=== PATIENT | female | born 1960 | race Caucasian/White ===

== ENCOUNTER 2017-09-11 10:46 | Emergency (ER) | payer MEDICARE, MEDICAID, SELFPAY ==
[2017-09-11 10:47] VITALS: BP 154/101; PULSE 95; RESP 18; TEMP 36.8; O2SAT 99; BMI 33.1
--- NOTE | 2017-09-11 10:54 | XR_ITS ---
XR chest 2V HISTORY: ITS.REASON: cough ORDERING PHYSICIAN: Jules Cruz MD PATIENT AGE: 57 years COMPARISON: [id number] FINDINGS: The cardiomediastinal silhouette and pulmonary vascularity are within normal limits. The lungs are clear without infiltrates, suspicious nodules, or pleural effusions. No acute bony abnormalities. IMPRESSION: Negative chest, no acute finding
[2017-09-11 11:23] LABS: Basophils % 0.4 % (0.1-2.0); Eosinophils % 0.2 % (0.1-12.0); Hematocrit 45.2 % (37.0-47.0); Hemoglobin 14.5 g/dL (12.2-16.2); Lymphocytes # 2.7 K/mm3 (0.7-4.5); Lymphocytes % 24.4 K/mm3 (10-50); Mean Corpuscular HGB Conc 32.1 g/dL (31.8-35.4); Mean Corpuscular Hemoglobin 25.8 pg (27.0-31.2); Mean Corpuscular Volume 80.4 fl (81-99); Mean Platelet Volume 7.9 fl (7.4-10.4); Monocytes # 0.4 K/mm3 (0.1-1.0); Monocytes % 3.3 % (1.7-9.3); Neutrophils # 7.8 K/mm3 (1.8-7.8); Neutrophils % 71.7 % (37.0-80.0); Platelet Count 337 K/mm3 (142-424); Red Blood Count 5.62 M/mm3 (4.20-5.40); Red Cell Distribution Width 15.9 % (11.5-17.5); White Blood Count 10.9 K/mm3 (4.8-10.8)
[2017-09-11 11:25] LABS: Alanine Aminotransferase 23 U/L (12-78); Albumin Level 3.2 gm/dL (3.4-5.0); Albumin/Globulin Ratio 0.7 (1.1-1.8); Alkaline Phosphatase 180 U/L (46-116); Anion Gap 13.1 mEq/L (5-15); Aspartate Amino Transferase 15 U/L (15-37); Bilirubin,Total 0.4 mg/dL (0.2-1.0); Blood Urea Nitrogen 11 mg/dL (7-18); Carbon Dioxide 28 mmol/L (21.0-32.0); Chloride 99 mmol/L (98-107); Creatinine Clearance Estimated 103 mL/min (0-300); Creatinine,Serum 0.85 mg/dL (0.55-1.02); Estimated Glomerular Filt Rate > 60 ml/min (>60); GFR (African American) > 60 ML/MIN (>60); Globulin 4.7 gm/dl (1.3-3.2); Glucose 131 mg/dL (74-106); Potassium 3.1 mmoL/L (3.5-5.1); Sodium 137 mmol/L (136-145); Strep Scrn Group A (Rapid) Negative (Negative); Total Protein,Serum 7.9 gm/dL (6.4-8.2); Troponin I < 0.02 ng/ml (0.00-0.06)
[2017-09-11 11:46] VITALS: BP 139/75; PULSE 72; RESP 18
--- NOTE | 2017-09-11 13:01 | [facility].EDFEV ---
ED Disposition Clinical Impression: Gastroenteritis, Viral gastroenteritis Disposition: Home, Self-Care Condition on Discharge: Fair Additional Instructions: Stay on clear liquids for the next 24 to 48hours and followup with PCP as needed. Prescriptions: Ondansetron HCl [Zofran 4mg Tab] 4 mg PO QID 10 Days #40 tab Referrals: Provider,Referral, [Primary Care Provider] - Time of Disposition: 15:45 - Critical Care Critical Care Time: No Attestation: On 09/11/17, the high probability of a clinically significant, sudden or life threatening deterioration of the following system(s) required my full and direct attention, intervention and personal management. The time I documented below is in addition to time spent performing reported procedures but includes the following listed in this critical care notation. Medical Decision Making - Medical Records Medical records reviewed: Yes: I reviewed the patient's medical records. Vital Signs: 09/11/17 10:47 09/11/17 11:46 09/11/17 13:03 Temperature 98.3 F 98.7 F Temperature Source Oral Oral Pulse Rate [Right Radial] 95 H 72 95 H Respiratory Rate 18 18 Blood Pressure [Right Arm] 154/101 139/75 145/76 Blood Pressure Mean [Right Arm] 118 96 99 Blood Pressure Source [Right Arm] Automatic Cuff Automatic Cuff Automatic Cuff Blood Pressure Position [Right Arm] Right Lateral Supine Supine 02 Sat by Pulse Oximetry 99 99 Oxygen Delivery Method Room Air Room Air - Lab Data Lab Results 09/11/17 10:56: WBC 10.9 H, RBC 5.62 H, Hgb 14.5, Hct 45.2, MCV 80.4 L, MCH 25.8 L, MCHC 32.1, RDW 15.9, Plt Count 337, MPV 7.9, Neut % (Auto) 71.7, Lymph % (Auto) 24.4, [place] % (Auto) 3.3, Eos % (Auto) 0.2, Baso % (Auto) 0.4, Neut # (Auto) 7.8, Lymph # (Auto) 2.7, [place] # (Auto) 0.4, Eos # (Auto) 0.0, Baso # (Auto) 0.0 09/11/17 10:56: Sodium 137, Potassium 3.1 L, Chloride 99, Carbon Dioxide 28, Anion Gap 13.1, BUN 11, Creatinine 0.85, Estimated Creat Clear 103, Estimated GFR > 60, Est GFR ( Amer) > 60, Glucose 131 H, Calcium 9.0, Total Bilirubin 0.4, AST 15, ALT 23, Alkaline Phosphatase 180 H, Troponin I < 0.02, Total Protein 7.9, Albumin 3.2 L, Globulin 4.7 H, Albumin/Globulin Ratio 0.7 L 09/11/17 10:56: Influenza Type A Ag Negative, Influenza Type B Ag Negative, Group A Strep Rapid Negative Result diagrams: 09/11/17 10:56 09/11/17 10:56 Orders (Tests/Meds): ED MEDICATIONS Generic Name Dose Route Start Last Admin Trade Name Freq PRN Reason Stop Dose Admin Sodium Chloride 10 ml 09/11/17 10:54 Saline Flush 10ml Syringe IV 10/11/17 10:53 NEEDED PRN Maintain IV Site Discontinued Medications Generic Name Dose Route Start Last Admin Trade Name Freq PRN Reason Stop Dose Admin Sodium Chloride 1,000 mls @ 999 mls/hr 09/11/17 14:15 Sod Chloride 0.9% 1000ml Bag IV 09/11/17 15:15 .Q1H1M RUDI Sodium Chloride 1,000 mls @ 999 mls/hr 09/11/17 14:15 09/11/17 14:58 Sod Chloride 0.9% 1000ml Bag IV 09/11/17 15:15 999 mls/hr .Q1H1M RUDI Administration Ondansetron HCl 4 mg 09/11/17 14:03 09/11/17 14:58 Zofran 4mg/2ml Vial IV 09/11/17 14:04 4 mg ONCE ONE Administration Potassium Chloride 40 meq 09/11/17 15:26 Klor-Con 20meq Tablet PO 09/11/17 15:27 ONCE ONE ORDERS Category Date Time Status XR chest 2V Stat Exams 09/11/17 10:54 Taken Blood Culture Stat Micro 09/11/17 10:54 Received Strep Screen Confirmation Stat Micro 09/11/17 10:56 Received - Radiology Data #1 Image(s): Chest Image Reviewed: Yes I reviewed the patient's radiology image Preliminary Findings: Normal/NAD - Jose Inquiry Pt receiving controlled substance: No Jose was queried for this patient: No Fever HPI - General Chief Complaint: Fever Stated Complaint: FLULIKE SYMPTOMS Time Seen by Provider: 09/11/17 13:45 Mode of Arrival: EMS Source of Information: Patient Limitations: No Limitations Description of Symp
[2017-09-11 13:03] VITALS: BP 145/76; PULSE 95; RESP 18; TEMP 37.1; O2SAT 99
--- NOTE | 2017-09-11 13:07 | ED_ITS ---
ED Disposition Clinical Impression: Gastroenteritis, Viral gastroenteritis Disposition: Home, Self-Care Condition on Discharge: Fair Additional Instructions: Stay on clear liquids for the next 24 to 48hours and followup with PCP as needed. Prescriptions: Ondansetron HCl [Zofran 4mg Tab] 4 mg PO QID 10 Days #40 tab Referrals: Provider,Referral, [Primary Care Provider] - Time of Disposition: 15:45 - Critical Care Critical Care Time: No Attestation: On 09/11/17, the high probability of a clinically significant, sudden or life threatening deterioration of the following system(s) required my full and direct attention, intervention and personal management. The time I documented below is in addition to time spent performing reported procedures but includes the following listed in this critical care notation. Medical Decision Making - Medical Records Medical records reviewed: Yes: I reviewed the patient's medical records. Vital Signs: 09/11/17 10:47 09/11/17 11:46 09/11/17 13:03 Temperature 98.3 F 98.7 F Temperature Source Oral Oral Pulse Rate [Right Radial] 95 H 72 95 H Respiratory Rate 18 18 Blood Pressure [Right Arm] 154/101 139/75 145/76 Blood Pressure Mean [Right Arm] 118 96 99 Blood Pressure Source [Right Arm] Automatic Cuff Automatic Cuff Automatic Cuff Blood Pressure Position [Right Arm] Right Lateral Supine Supine 02 Sat by Pulse Oximetry 99 99 Oxygen Delivery Method Room Air Room Air - Lab Data Lab Results 09/11/17 10:56: WBC 10.9 H, RBC 5.62 H, Hgb 14.5, Hct 45.2, MCV 80.4 L, MCH 25.8 L, MCHC 32.1, RDW 15.9, Plt Count 337, MPV 7.9, Neut % (Auto) 71.7, Lymph % (Auto) 24.4, [place] % (Auto) 3.3, Eos % (Auto) 0.2, Baso % (Auto) 0.4, Neut # ( Auto) 7.8, Lymph # (Auto) 2.7, [place] # (Auto) 0.4, Eos # (Auto) 0.0, Baso # (Auto ) 0.0 09/11/17 10:56: Sodium 137, Potassium 3.1 L, Chloride 99, Carbon Dioxide 28, Anion Gap 13.1, BUN 11, Creatinine 0.85, Estimated Creat Clear 103, Estimated GFR > 60, Est GFR ( Amer) > 60, Glucose 131 H, Calcium 9.0, Total Bilirubin 0.4, AST 15, ALT 23, Alkaline Phosphatase 180 H, Troponin I < 0.02, Total Protein 7.9, Albumin 3.2 L, Globulin 4.7 H, Albumin/Globulin Ratio 0.7 L 09/11/17 10:56: Influenza Type A Ag Negative, Influenza Type B Ag Negative, Group A Strep Rapid Negative Result diagrams: 09/11/17 10:56 09/11/17 10:56 Orders (Tests/Meds): ED MEDICATIONS Generic Name Dose Route Start Last Admin Trade Name Freq PRN Reason Stop Dose Admin Sodium Chloride 10 ml 09/11/17 10:54 Saline Flush 10ml Syringe IV 10/11/17 10:53 NEEDED PRN Maintain IV Site Discontinued Medications Generic Name Dose Route Start Last Admin Trade Name Freq PRN Reason Stop Dose Admin Sodium Chloride 1,000 mls @ 999 mls/hr 09/11/17 14:15 Sod Chloride 0.9% 1000ml Bag IV 09/11/17 15:15 .Q1H1M RUDI Sodium Chloride 1,000 mls @ 999 mls/hr 09/11/17 14:15 09/11/17 14:58 Sod Chloride 0.9% 1000ml Bag IV 09/11/17 15:15 999 mls/hr .Q1H1M RUDI Administration Ondansetron HCl 4 mg 09/11/17 14:03 09/11/17 14:58 Zofran 4mg/2ml Vial IV 09/11/17 14:04 4 mg ONCE ONE Administration Potassium Chloride 40 meq 09/11/17 15:26 Klor-Con 20meq Tablet PO 09/11/17 15:27 ONCE ONE ORDERS
[2017-09-11 16:06] VITALS: BP 125/75; PULSE 80; RESP 18; TEMP 36.7
== END 2017-09-11 17:08 | disposition home or self-care (01) ==
PROVIDERS: Emergency Provider General Practice
DX: A08.4 Viral intestinal infection, unspecified (principal); F17.210 Nicotine dependence, cigarettes, uncomplicated
CPT/HCPCS: 71046; 80053; 84484; 85025; 87040; 87275; 87276; 87430; 96365; 96375; 99283; J2405